=== PATIENT | male | born 1965 | race Caucasian/White ===

== ENCOUNTER 2021-03-16 05:35 | Day surgery (SDC) | payer OTHER ==
[2021-03-14 11:18] VITALS: BMI 37.6
[2021-03-16 12:20] LABS: HEMOGLOBIN 13.5 GM/dL (11.7-16.9); MCH 28.2 pg (25.7-33.7); MCHC 33.8 g/dl (32.0-35.9); MEAN CELL VOLUME 83.6 fl (80-96); MEAN PLT VOLUME 7.4 fl (7.5-11.1); PLATELET COUNT 309 10^3/uL (134-434); RBC 4.79 M/mm3 (4.00-5.60); RDW 13.3 % (11.9-15.9); WHITE BLOOD COUNT 6.9 K/mm3 (4.0-10.0)
[2021-03-16 12:23] LABS: EPI CELLS 6 /uL (0-25.1); HYALINE CASTS 8 /uL (0-3.1); PH,URINE 5.5 (5.0-8.0); URINE APPEARANCE CLEAR; URINE BACTERIA 1 /uL (0-1359); URINE BILIRUBIN NEGATIVE (NEGATIVE); URINE COLOR YELLOW; URINE GLUCOSE (UA) NEGATIVE (NEGATIVE); URINE KETONE TRACE (NEGATIVE); URINE LEUK ESTERASE NEGATIVE (NEGATIVE); URINE NITRITE NEGATIVE (NEGATIVE); URINE PROTEIN NEGATIVE (NEGATIVE); URINE WBC 7 /uL (0-25.8)
[2021-03-16 12:24] LABS: INR 0.97 (0.83-1.09)
[2021-03-16 12:40] LABS: URINE RBC 27.9 /uL (0-23.9)
[2021-03-16] MEDS ORDERED: ACETAMINOPHEN 1000 MG/100 ML VIAL (NON FORMULARY) IVPB ONE ×2 (14:23)
[2021-03-16] MEDS ORDERED: IBUPROFEN 800 MG/8 ML IJ IVPB SCH (14:30)
[2021-03-16] MEDS ORDERED: DEXTROSE 5%-0.45% SALINE 1,000 ML IV SCH (14:30)
[2021-03-16] MEDS ORDERED: MIDAZOLAM HCL 2 MG/2 ML SINGLE DOSE VIAL ONE (14:35)
[2021-03-16] MEDS ORDERED: IOHEXOL 180 MG/1 ML ML IJ ONE ×2 (14:37→14:47)
[2021-03-16] MEDS ORDERED: PROPOFOL 20 ML ONE (14:40)
[2021-03-16] MEDS ORDERED: ceFAZolin SODIUM 1 GM VIAL ONE (14:44)
[2021-03-16] MEDS ORDERED: LIDOCAINE HCL 2% JELLY 10 ML CARTRIDGE ONE (14:46)
[2021-03-16] MEDS ORDERED: LIDOCAINE HCL 2% JELLY 10 ML CARTRIDGE TP ONE (14:47)
[2021-03-16] MEDS ORDERED: IBUPROFEN 800 MG/8 ML IJ IVPB ONE (15:22)
[2021-03-16 19:19] VITALS: BP 128/78; PULSE 62; TEMP 97.8
== END 2021-03-16 16:00 | disposition home or self-care (01) ==
LOC: JASU-SURG 05:35
PROVIDERS: ATTEND Urology
PROC: BT14YZZ Fluoroscopy of Kidneys, Ureters and Bladder using Other Contrast (ICD-10-PCS; principal; 2021-03-16 14:00)
DX: R31.0 Gross hematuria (principal)
CPT/HCPCS: 36415; 81003; 85027; 85610; 85730; 94760

== ENCOUNTER 2023-07-04 10:24 | Day surgery (SDC) | payer OTHER ==
[2023-07-01 15:49] VITALS: BMI 35.9
[2023-07-04 12:14] VITALS: TEMP 98
[2023-07-07 09:16] VITALS: BP 136/75; PULSE 68; RESP 16
== END 2023-07-04 12:50 | disposition home or self-care (01) ==
LOC: FASU-ENDO 10:24
PROVIDERS: ATTEND Internal Medicine Gastroenterology
PROC: 0DBN8ZX Excision of Sigmoid Colon, Via Natural or Artificial Opening Endoscopic, Diagnostic (ICD-10-PCS; principal; 2023-07-04 11:48)
DX: Z12.11 Encounter for screening for malignant neoplasm of colon (principal); K63.5 Polyp of colon; K64.1 Second degree hemorrhoids; K64.2 Third degree hemorrhoids
CPT/HCPCS: 88305-TC